=== PATIENT | male | born 2000 | race Caucasian/White ===

== ENCOUNTER 2019-02-02 18:24 | Emergency (ER) | payer OTHER ==
[2019-02-02 18:33] VITALS: BP 119/69
--- NOTE | 2019-02-02 18:47 | EDPHY ---
H & P Time Seen by Provider: 02/02/19 18:34 HPI/ROS: CHIEF COMPLAINT: Skin avulsion while at work HISTORY OF PRESENT ILLNESS: 18-year-old male works in a [employer], was cutting an avocado yesterday, sustained skin avulsion to the left index finger dorsal distal phalanx. Complaining of pain. Tetanus up-to-date. No paresthesia. No erythema. PHYSICAL EXAM (Prior to examination, patient consented to physical exam, hands were washed and my usual and customary physical exam procedures followed) 1) GENERAL: Well-developed, well-nourished, alert and oriented. Appears to be in no acute distress. 2) HEAD: Normocephalic 3) HEENT: sclera anicteric 4) LUNGS: Breathing comfortably. 5) SKIN: Left index finger dorsal aspect of the distal phalanx superficial skin avulsion involving the nail. The nail was avulsed. There is no nail bed laceration. There are no signs of infection. Negative kanavel sign. 6) MUSCULOSKELETAL: Extensor function at the MCP PIP DIP intact, FDP FDS intact , 7) NEUROLOGIC: Two-point discrimination intact Smoking Status: Never smoked Constitutional: Initial Vital Signs Temperature (C) 36.6 C 02/02/19 18:31 Heart Rate 90 02/02/19 18:31 Respiratory Rate 16 02/02/19 18:31 Blood Pressure 119/69 02/02/19 18:31 O2 Sat (%) 97 02/02/19 18:31 O2 Delivery Mode Room Air Allergies/Adverse Reactions: No Known Allergies Allergy (Unverified 02/02/19 18:33) Home Medications: Medication Instructions Recorded NK [No Known Home Meds] 02/02/19 MDM/Departure - MDM Procedures: Procedure: Digital Nerve block I explained the indications, risks and benefits for both laceration repair and anesthetic administration. Verbal consent was obtained from the patient . The index finger was anesthetized using 0.5% bupivicaine without epinephrine digital nerve block. ED Course/Re-evaluation: Patient's finger was anesthetized with digital nerve block see procedure note. Wound is cleansed, dressed with Surgicel dressing resultant hemostasis. Patient tolerated procedure well. No evidence of infection. I provided usual and customary wound precautions instructions. Recommend follow up with work comp. Care of patient under supervision of primary supervising physician Dr Disla . - Depart Disposition: Home, Routine, Self-Care Clinical Impression: Avulsion of skin of index finger Qualifiers: Encounter type: initial encounter Qualified Code(s): S61.208A - Unspecified open wound of other finger without damage to nail, initial encounter Condition: Good Instructions: Skin Avulsion (ED) Additional Instructions: Return to the ER if you develop redness, swelling, discharge, warmth to the wound, red streaks going up your arm, or any other symptoms that concern you. Stand Alone Forms: Work Comp Follow Up Referrals: Theo Kamara MD [Medical Doctor] - 2-3 days, call for appt.
== END 2019-02-02 19:20 | disposition home or self-care (01) ==
PROC: 3E0T3BZ Introduction of Anesthetic Agent into Peripheral Nerves and Plexi, Percutaneous Approach (ICD-10-PCS; principal; 2019-02-02)
DX: S61.201A Unspecified open wound of left index finger without damage to nail, initial encounter (principal); W26.0XXA Contact with knife, initial encounter; Y93.G1 Activity, food preparation and clean up